=== PATIENT | female | born 1975 | race Caucasian/White ===

== ENCOUNTER 2016-05-28 18:23 | Emergency (ER) | payer BC ==
[~2016-05-28] VITALS: Ht 162.6 cm; Wt 80.3 kg
[~2016-05-28 18:23] MED LIST: FERR-24 PO; PRENTAB69 PO
[2016-05-28 18:49] VITALS: TEMP 37.2; Ht 162.6 cm; Wt 80.3 kg
[2016-05-28] MEDS ORDERED: SODIUM CHLORIDE 0.9% 1000ML 1,000 ML IV STA (19:03)
[2016-05-28] MEDS ORDERED: ONDANSETRON INJ 2 MG/ML 2 ML VIAL IV STA (19:03)
[2016-05-28 19:23] LABS: BASO ABS # 0.02 K/uL (0-0.2); COMPLETE YES; EOS % 3.9 %; HEMATOCRIT 36.9 % (37-47); IG% 0.5 %; LYMPH % 19.4 %; MEAN CELL VOLUME 81.8 fL (80-100); MEAN CORPUSCULAR HEMOGLOBIN 27.1 pg (25-34); MEAN CORPUSCULAR HGB CONC 33.1 g/dl (32-36); MEAN PLATELET VOLUME 9.8 fL (7.4-10.4); MONO % 9.2 %; PLATELET COUNT 281 K/uL (130-400); RED BLOOD COUNT 4.51 M/uL (4.2-5.4); WHITE BLOOD COUNT 2.06 K/uL (4.8-10.8)
[2016-05-28 19:43] LABS: BLOOD UREA NITROGEN 15 mg/dl (7-18); BUN/CREATININE RATIO 21.9 (10-20); CALCIUM 8.5 mg/dl (8.5-10.1); CARBON DIOXIDE 25 mmol/L (21-32); CHLORIDE 107 mmol/L (98-107); CREATININE 0.67 mg/dl (0.60-1.20); GLUCOSE 105 mg/dl (70-99); SODIUM 142 mmol/L (136-145)
[2016-05-28 19:52] LABS: ALKALINE PHOSPHATASE 67 U/L (45-117); ALT/SGPT 50 U/L (12-78); AST/SGOT 18 U/L (15-37)
[2016-05-28] MEDS ORDERED: ONDA4TAB10 SL (21:01)
[2016-05-28] MEDS ORDERED: ONDANSETRON HOME PACK 4MG OD TAB PO ONE (21:15)
[2016-05-28 21:22] VITALS: BP 120/63; PULSE 111; O2SAT 97
--- NOTE | 2016-05-28 22:22 | EMERGENCY ROOM VISIT NOTE ---
History Report prepared by Emy: Caty Jones Under the Supervision of: Dr. Spencer Carreno M.D. First contact with patient: 18:57 Chief Complaint: VOMITING Stated Complaint: VOMITING,DIARRHEA,ON CHEMO Nursing Triage Summary: hx hodkins lymphoma History of Present Illness The patient is a 40 year old female who presents to the Emergency Room with complaints of persistent nausea, vomiting and diarrhea that began this afternoon. The patient also complains of general abdominal cramping, lightheadedness, and weakness. She most recently urinated 2 hours ago. Denies fever or other complaints. No recent foreign travel. The patient was on Cephalexin for a nose infection recently and finished the course 2 days ago. The patient has Hodgkin's lymphoma and is receiving chemotherapy treatment. Her most recent chemotherapy was about 2 weeks ago. Source of History: patient Onset: this afternoon Position: other (GI) Quality: other (nausea, vomiting, diarrhea) Timing: other (persistent) Associated Symptoms: + abdominal pain, + weakness Note: Other symptoms: lightheadedness Review of Systems See HPI for pertinent positives & negatives. A total of 10 systems reviewed and were otherwise negative. Past Medical & Surgical Medical Problems: (1) Hodgkin's lymphoma Family History Diabetes mellitus Heart disease Social History Smoking Status: Former Smoker Alcohol Use: none Marital Status: Occupation Status: employed Current/Historical Medications Scheduled Ferrous Sulfate (Fe Tabs), 325 MG PO DAILY Multivit/Min/Iron/Fol Ac/Pren ( Vitamins), 1 TAB PO DAILY Ondasetron Odt (Zofran Odt), 4 MG SL Q6H Allergies Coded Allergies: Sulfa Drugs (Unverified Allergy, RASH, 08/29/11) Physical Exam Vital Signs Date Time Temp Pulse Resp B/P Pulse Ox O2 Delivery O2 Flow Rate FiO2 05/28/16 21:22 111 18 120/63 97 Room Air 05/28/16 19:28 98 16 102/65 99 Room Air 05/28/16 18:49 37.2 100 24 87/60 97 Room Air Physical Exam Constitutional: Vital signs reviewed. Eyes: Pupils are equal round reactive to light. Conjunctiva are noninjected. ENT: Pharynx is clear without erythema or exudate. Mucous membranes are dry. Neck supple without meningeal signs. Respiratory: Clear to auscultation bilaterally. Breath sounds are equal bilaterally. Cardiovascular: Regular rate and rhythm. No rubs or gallops. GI: Soft, nondistended and nontender. Bowel sounds are present. Musculoskeletal: No peripheral edema. Integumentary: No cyanosis. Neurological: The patient is awake and alert. No focal deficits. Psychiatric: Normal affect. Medical Decision & Procedures Laboratory Results 05/28/16 19:09 Red Blood Count 4.51, Mean Corpuscular Volume 81.8, Mean Corpuscular Hemoglobin 27.1, Mean Corpuscular Hemoglobin Concent 33.1, Mean Platelet Volume 9.8, Neutrophils (%) (Auto) 66.0, Lymphocytes (%) (Auto) 19.4, Monocytes (%) (Auto) 9.2, Eosinophils (%) (Auto) 3.9, Basophils (%) (Auto) 1.0, Neutrophils # (Auto) 1.36, Lymphocytes # (Auto) 0.40, Monocytes # (Auto) 0.19, Eosinophils # (Auto) 0.08, Basophils # (Auto) 0.02 05/28/16 19:09 Test 05/28/16 19:09 White Blood Count 2.06 K/uL (4.8-10.8) Red Blood Count 4.51 M/uL (4.2-5.4) Hemoglobin 12.2 g/dL (12.0-16.0) Hematocrit 36.9 % (37-47) Mean Corpuscular Volume 81.8 fL (80-100) Mean Corpuscular Hemoglobin 27.1 pg (25-34) Mean Corpuscular Hemoglobin Concent 33.1 g/dl (32-36) Platelet Count 281 K/uL (130-400) Mean Platelet Volume 9.8 fL (7.4-10.4) Neutrophils (%) (Auto) 66.0 % Lymphocytes (%) (Auto) 19.4 % Monocytes (%) (Auto) 9.2 % Eosinophils (%) (Auto) 3.9 % Basophils (%) (Auto) 1.0 % Neutrophils # (Auto) 1.36 K/uL (1.4-6.5) Lymphocytes # (Auto) 0.40 K/uL (1.2-3.4) Monocytes # (Auto) 0.19 K/uL (0.11-0.59) Eosinophils # (Auto) 0.08 K/uL (0-0.5) Basophils # (Auto) 0.02 K/uL (0-0.2) RDW Standard Deviation 44.6 fL (36.4-46.3) RDW Coefficient of Variation 15.4 % (11.5-14.5) Immature Granulocyte % (Auto) 0.5 % Immature Granulocyte # (Auto) 0.01 K/uL (0.00-0.02) Anion Gap 10.0 mmol/L (3-11) Est Creatinine Clear Calc Drug Dose 116.8 ml/min Estimated GFR () 129.2 Estimated GFR (Non- 111.5 BUN/Creatinine Ratio 21.9 (10-20) Calcium Level 8.5 mg/dl (8.5-10.1) Total Bilirubin 0.3 mg/dl (0.2-1) Direct Bilirubin < 0.1 mg/dl (0-0.2) Aspartate Amino Transf (AST/SGOT) 18 U/L (15-37) Alanine Aminotransferase (ALT/SGPT) 50 U/L (12-78) Alkaline Phosphatase 67 U/L (45-117) Total Protein 7.3 gm/dl (6.4-8.2) Albumin 4.0 gm/dl (3.4-5.0) Lipase 82 U/L (73-393) Laboratory results as reviewed by me. Medications Administered Medications (Trade) Dose Ordered Sig/Chris Route Start Time Stop Time Status Last Admin Dose Admin Sodium Chloride (Nss 1000ml) 1,000 ml @ 999 mls/hr Q1H1M STAT IV 05/28/16 19:03 05/28/16 20:03 DC 05/28/16 19:19 999 MLS/HR Ondansetron HCl (Zofran Inj) 4 mg NOW STAT IV 05/28/16 19:03 05/28/16 19:05 DC 05/28/16 19:20 4 MG Ondansetron HCl (ZOFRAN ODT 4MG Home Pack) 1 painterpa UD ONCE PO 05/28/16 21:15 05/28/16 21:16 DC 05/28/16 21:21 1 HOMEPACK ED Course 1858: The patient was evaluated in room C2. A complete history and physical exam was performed. 1903: Ordered Zofran Inj 4 mg IV, NSS 1000 ml @ 999 mls/hr IV. 2030: I reassessed the patient and discussed test results with her. Her blood pressure was 110/58. She is feeling better and sipping Mario Malika. 2057: I reassessed the patient. She drank Mario Malika and feels well enough to go home. Her blood pressure was 120/63. The patient will be discharged home. 2114: Ordered Ondansetron HCl 1 homepack PO. Medical Decision This is a 40-year-old female who presents with vomiting and diarrhea. Differential diagnosis includes gastroenteritis, dehydration, foodborne illness , electrolyte abnormality, C. difficile. I did perform a limited focused review of portions of the patient's old chart on the electronic medical record. The patient has had no recent pertinent visits to this hospital. I did evaluate the patient as noted above. The patient is presenting with vomiting and diarrhea consistent with a viral gastroenteritis. She does have some abdominal pain but no tenderness on examination. She was initially hypotensive in triage. She was also recently on antibiotics. IV access was established. The patient was placed on a continuous utility operator. I did treat her with a liter normal saline IV. She was also given Zofran IV. Her blood pressure improved significantly. I did order stool cultures and C. difficile testing. C. difficile testing was negative. I did order and review the patient's blood work as noted in the electronic medical record. She does have leukopenia likely from her chemotherapy. I did reassess the patient. She is feeling better. Her blood pressure is significantly improved. She is no longer lightheaded. She is drinking mario malika. She does feel well enough for discharge. She was given a prescription for Zofran. I did discuss her test results with her. I did recommend close follow up. She was discharged in good condition. Impression Primary Impression: Dehydration Additional Impressions: Hypotension Vomiting and diarrhea Leukopenia Scribe Attestation The scribe's documentation has been prepared under my direct and personally reviewed by me in its entirety. I confirm that the note above accurately reflects all work, treatment, procedures, and medical decision making performed by me. Departure Information Dispostion Home / Self-Care Prescriptions Ondasetron Odt (ZOFRAN ODT) 4 Mg Tab 4 MG SL Q6H for Nausea, #10 TAB Prov: Spencer Carreno M.D. 05/28/16 Referrals Alessandro Hamilton M.D. (PCP) Patient Instructions ED Dehydration, ED Diet Vomiting Diarrhea, My [facility] [address] Additional Instructions You have been examined and treated today on an emergency basis only. This is not a substitute for, or an effort to provide, complete comprehensive medical care. It is impossible to recognize and treat all injuries or illnesses in a single emergency department visit. It is therefore important that you follow up closely with your physician. Call as soon as possible for an appointment. Return for worsening symptoms or if you develop fever, rectal bleeding, significant abdominal pain or any other concerning symptoms. Problem Qualifiers
[2016-07-14] MEDS ORDERED: PROC1TAB5 PO (00:35)
[2016-07-14] MEDS ORDERED: ONDA8TAB6 PO (00:35)
== END 2016-05-28 21:24 | disposition home or self-care (01) ==
LOC: C.EDB 18:24 → C.EDC 21:24
DX: E86.0 Dehydration (principal); I95.9 Hypotension, unspecified; R11.10 Vomiting, unspecified; R19.7 Diarrhea, unspecified; D72.819 Decreased white blood cell count, unspecified; C81.90 Hodgkin lymphoma, unspecified, unspecified site; Z87.891 Personal history of nicotine dependence; Z79.899 Other long term (current) drug therapy; Z88.2 Allergy status to sulfonamides; Z83.3 Family history of diabetes mellitus; Z82.49 Family history of ischemic heart disease and other diseases of the circulatory system

== ENCOUNTER 2016-06-22 21:56 | Emergency (ER) | payer BC ==
[~2016-06-22] VITALS: Ht 162.6 cm; Wt 83.1 kg
[~2016-06-22 21:56] MED LIST changes: +ONDA4TAB10 SL
[2016-06-22 22:00] VITALS: TEMP 36.9; Ht 162.6 cm; Wt 83.1 kg
[2016-06-23] MEDS ORDERED: SODIUM CHLORIDE 0.9% 1000ML 1,000 ML IV STA (00:21)
[2016-06-23] MEDS ORDERED: SODIUM CHLORIDE 0.9% 1000ML 1,000 ML IV ONE (00:21)
--- NOTE | 2016-06-23 00:23 | EMERGENCY ROOM VISIT NOTE ---
History Report prepared by Emy: Fernie Scott Under the Supervision of: Dr. Kwesi Simon M.D. First contact with patient: 00:02 Chief Complaint: LEG PAIN,LEG INJURY Stated Complaint: DIANE HORSE IN R CALF AND THIGH History of Present Illness The patient is a 40 year old female who presents to the Emergency Room with complaints of worsening right calf pain for the past three days. The patient also has some pain in the right thigh. The pain is rated 6/10 in severity. The patient denies any recent injuries to the leg. She also complains of chest soreness and neck and shoulder stiffness. The patient's chest pain is not worsened with movement or breathing. The patient denies any fevers. The patient is being treated for Hodgkin's Lymphoma which was diagnosed in February. She has had four chemotherapy treatments with the last one being 10 days ago. The patient has a port. She follows up with Dr. Hamilton [facility] Oncologist. She is mildly neutropenic. The patient is not on any blood thinners. She denies any personal or family history of blood clots. The patient notes that she has had vaginal bleeding and hematuria for the past week. The patient is not on prednisone. Source of History: patient, spouse/significant other Onset: three days Position: leg (right) Symptom Intensity: 6/10 Timing: worsening Associated Symptoms: + chest pain, + neck pain, + urinary symptoms, No fevers Review of Systems See HPI for pertinent positives & negatives. A total of 10 systems reviewed and were otherwise negative. Past Medical & Surgical Medical Problems: (1) Hodgkin's lymphoma Old medical records were reviewed. Nurse's notes were reviewed and I agree with. Family History Diabetes mellitus Heart disease Social History Smoking Status: Former Smoker Alcohol Use: none Marital Status: Occupation Status: employed Current/Historical Medications Scheduled Amoxicillin & Pot Clavulanate (Augmentin 875-125 mg), 1 TAB PO BID Scheduled PRN Acetaminophen (Tylenol), 650 MG PO Q6 PRN for Pain Meclizine Hcl (Meclizine Hcl), 1 TAB PO TID PRN for dizzy Ondansetron Hcl (Zofran), 8 MG PO UD PRN for Nausea Prochlorperazine Maleate (Compazine), 10 MG PO UD PRN for Nausea Allergies Coded Allergies: Sulfa Drugs (Unverified Allergy, Unknown, RASH, 2/25/17) Physical Exam Vital Signs Physical Exam General: Well developed well nourished non-ill appearing middle aged female who appears in no acute distress, breathing comfortably on room air. Normal speech HEENT: Normal cephalic atraumatic. Pupils are equal round and reactive to light. Extraocular movements are intact. Oropharynx is pink with moist mucous membranes. No swelling of the mouth lips or tongue. Neck: Supple with a midline trachea. No meningeal signs or stiffness, no JVD or bruits. No Stridor. Chest: Clear to auscultation bilaterally. No wheezes or rhonchi. No increased work of breathing. A port in chest Heart: Regular rate and rhythm without murmurs or gallops. Abdomen: Soft nontender, nondistended without rebound guarding or rigidity. Extremities: No cyanosis clubbing or edema. No calf tenderness or assymetry. no redness or warmth Spine/Back. Non tender to palpation. No CVA tenderness Skin: Good turgor without rashes. Neurologic exam: Cranial nerves two through 12 are intact. Motor and sensation are intact and symmetrical throughout. Medical Decision & Procedures ER Provider Diagnostic Interpretation: Radiology results as stated below per my review and radiologist interpretation: US VENOUS RIGHT LOWER EXTREMITY: Compared to bilateral lower extremity DVT study 08/29/2011. No evidence of right lower extremity DVT. Radiologist: Mary Kay Quesada MD. Laboratory Results 06/23/16 01:45 Red Blood Count 4.11, Mean Corpuscular Volume 80.0, Mean Corpuscular Hemoglobin 26.8, Mean Corpuscular Hemoglobin Concent 33.4, Mean Platelet Volume 9.2, Neutrophils (%) (Auto) 50.1, Lymphocytes (%) (Auto) 42.0, Monocytes (%) (Auto) 4.4, Eosinophils (%) (Auto) 2.8, Basophils (%) (Auto) 0.5, Neutrophils # (Auto) 2.16, Lymphocytes # (Auto) 1.81, Monocytes # (Auto) 0.19, Eosinophils # (Auto) 0.12, Basophils # (Auto) 0.02 06/23/16 01:45 Test 06/23/16 01:15 06/23/16 01:45 Urine Color YELLOW Urine Appearance CLEAR (CLEAR) Urine pH 5.0 (4.5-7.5) Urine Specific Egan 1.005 (1.000-1.030) Urine Protein NEG (NEG) Urine Glucose (UA) NEG (NEG) Urine Ketones NEG (NEG) Urine Occult Blood TRACE (NEG) Urine Nitrite NEG (NEG) Urine Bilirubin NEG (NEG) Urine Urobilinogen NEG (NEG) Urine Leukocyte Esterase NEG (NEG) Urine WBC (Auto) 0 /hpf (0-5) Urine RBC (Auto) 0-4 /hpf (0-4) Urine Hyaline Casts (Auto) 0 /lpf (0-5) Urine Epithelial Cells (Auto) 0-5 /lpf (0-5) Urine Bacteria (Auto) NEG (NEG) White Blood Count 4.31 K/uL (4.8-10.8) Red Blood Count 4.11 M/uL (4.2-5.4) Hemoglobin 11.0 g/dL (12.0-16.0) Hematocrit 32.9 % (37-47) Mean Corpuscular Volume 80.0 fL (80-100) Mean Corpuscular Hemoglobin 26.8 pg (25-34) Mean Corpuscular Hemoglobin Concent 33.4 g/dl (32-36) Platelet Count 328 K/uL (130-400) Mean Platelet Volume 9.2 fL (7.4-10.4) Neutrophils (%) (Auto) 50.1 % Lymphocytes (%) (Auto) 42.0 % Monocytes (%) (Auto) 4.4 % Eosinophils (%) (Auto) 2.8 % Basophils (%) (Auto) 0.5 % Neutrophils # (Auto) 2.16 K/uL (1.4-6.5) Lymphocytes # (Auto) 1.81 K/uL (1.2-3.4) Monocytes # (Auto) 0.19 K/uL (0.11-0.59) Eosinophils # (Auto) 0.12 K/uL (0-0.5) Basophils # (Auto) 0.02 K/uL (0-0.2) RDW Standard Deviation 45.5 fL (36.4-46.3) RDW Coefficient of Variation 15.9 % (11.5-14.5) Immature Granulocyte % (Auto) 0.2 % Immature Granulocyte # (Auto) 0.01 K/uL (0.00-0.02) Anion Gap 8.0 mmol/L (3-11) Est Creatinine Clear Calc Drug Dose 124.3 ml/min Estimated GFR () 131.2 Estimated GFR (Non- 113.2 BUN/Creatinine Ratio 19.4 (10-20) Calcium Level 9.0 mg/dl (8.5-10.1) Total Bilirubin 0.2 mg/dl (0.2-1) Direct Bilirubin < 0.1 mg/dl (0-0.2) Aspartate Amino Transf (AST/SGOT) 16 U/L (15-37) Alanine Aminotransferase (ALT/SGPT) 41 U/L (12-78) Alkaline Phosphatase 68 U/L (45-117) Total Protein 7.0 gm/dl (6.4-8.2) Albumin 3.8 gm/dl (3.4-5.0) Lipase 127 U/L (73-393) Date/Time Source Procedure Growth Status 06/23/16 01:15 Urine , Clean Catch Urine Culture - Final NO GROWTH - LESS THAN 1,000 COLONIES/ML Complete Laboratory studies as stated above per my review. Medications Administered Medications (Trade) Dose Ordered Sig/Chris Route Start Time Stop Time Status Last Admin Dose Admin Sodium Chloride (Nss 1000ml) 1,000 ml @ 999 mls/hr Q1H1M STAT IV 06/23/16 00:21 06/23/16 01:21 DC 06/23/16 00:21 999 MLS/HR ED Course 0010: Past medical records reviewed. The patient was evaluated in room C5, and a complete history and physical examination were performed. 0021: NSS 1000 ml @ 150 mls/hr, NSS 1000 ml @ 999 mls/hr. 0155: Reassessed the patient. 0230: Dr. Rob, [employer]ision C[employer] Manager: Agrees with the plan. Patient will be discharged. Medical Decision This patient comes in as described above. She is placed in room C5. She is here for treatment and evaluation of right leg pain. It feels like a muscle spasm the right calf. She is currently receiving chemotherapy for Hodgkin's lymphoma. She does have an aport in her left chest. Order ultrasound and blood work. She has no fever. Blood work was unremarkable she is not neutropenic. She has mild anemia. She has normal platelet function. No significant electrolyte or metabolic abnormalities. Ultrasound of her leg was unremarkable. Urinalysis was unremarkable does not suggest UTI with a backup culture pending. She desires to go home. I did discuss this with the on-call service writer, Dr. Rob, and she agrees with plan. The patient will rest and use [id number] pain medications and return if increasing pain, worsening of symptoms, shortness breath, fever or chills, any new problems or concerns. She is happy with the plan and discharged to home. Consults Time Called: [phone] Consulting Physician: Dr. Rob, [employer] C[employer] Manager: Returned Call: [phone]: Dr. Rob, [employer] C[employer] Manager: Agrees with the plan. Patient will be discharged. Impression Primary Impression: Leg pain, right Additional Impression: Hodgkin's lymphoma Scribe Attestation The scribe's documentation has been prepared under my direction and personally reviewed by me in its entirety. I confirm that the note above accurately reflects all work, treatment, procedures, and medical decision making performed by me. Departure Information Dispostion Home / Self-Care Referrals Alessandro Hamilton M.D. (PCP) Forms HOME CARE DOCUMENTATION FORM, IMPORTANT VISIT INFORMATION Patient Instructions My [facility] [employer] Additional Instructions Rest Drink plenty of fluids REturn if: worsening of symptoms, fever, increasing pain, any new problems or concerns Follow-up with your doctor on Saturday for recehck Problem Qualifiers
[2016-06-23 01:35] LABS: URINE APPEARANCE CLEAR (CLEAR); URINE BILIRUBIN NEG (NEG); URINE COLOR YELLOW; URINE EPITHELIAL CELL AUTO 0-5 /lpf (0-5); URINE NITRITE NEG (NEG); URINE SPECIFIC GRAVITY 1.005 (1.000-1.030); UROBILINOGEN NEG (NEG)
[2016-06-23 01:40] LABS: MANUAL MICROSCOPIC REQUIRED? NO; REVIEW REQ? NO
[2016-06-23 01:58] LABS: HEMATOCRIT 32.9 % (37-47); MEAN CORPUSCULAR HEMOGLOBIN 26.8 pg (25-34); MEAN CORPUSCULAR HGB CONC 33.4 g/dl (32-36); MEAN PLATELET VOLUME 9.2 fL (7.4-10.4); PLATELET COUNT 328 K/uL (130-400); RED BLOOD COUNT 4.11 M/uL (4.2-5.4); WHITE BLOOD COUNT 4.31 K/uL (4.8-10.8)
[2016-06-23 02:19] LABS: ALT/SGPT 41 U/L (12-78); AST/SGOT 16 U/L (15-37); BLOOD UREA NITROGEN 12 mg/dl (7-18); BUN/CREATININE RATIO 19.4 (10-20); CARBON DIOXIDE 26 mmol/L (21-32); CHLORIDE 107 mmol/L (98-107); CREATININE 0.64 mg/dl (0.60-1.20); GLUCOSE 88 mg/dl (70-99); POTASSIUM 3.8 mmol/L (3.5-5.1); SODIUM 141 mmol/L (136-145)
[2016-06-23 02:21] LABS: ALKALINE PHOSPHATASE 68 U/L (45-117)
[2016-06-23 02:25] LABS: BASO % 0.5 %; BASO ABS # 0.02 K/uL (0-0.2); COMPLETE YES; EOS % 2.8 %; IG% 0.2 %; LYMPH ABS # 1.81 K/uL (1.2-3.4); MONO % 4.4 %; NEUT % 50.1 %
[2016-06-23 02:51] VITALS: BP 110/76; PULSE 88; O2SAT 99
--- NOTE | 2016-06-23 06:57 | DIAGNOSTIC IMAGING REPORT ---
ULTRASOUND RIGHT VENOUS DOPP LOWER EXT UNILAT CLINICAL HISTORY: Right thigh and calf pain. History of lymphoma. COMPARISON STUDY: August 29, 2011 FINDINGS: Real-time and color flow Doppler imaging were performed. Flow was seen within the femoral, popliteal and calf veins with no intraluminal thrombus demonstrated. The saphenous vein is patent. IMPRESSION: No evidence of right lower extremity DVT. Electronically signed by: Diego Kuhn M.D. 06/23/2016 6:56 AM Dictated Date/Time: 06/23/2016 6:55 AM
[2016-07-14] MEDS ORDERED: PROC1TAB5 PO (00:35)
[2016-07-14] MEDS ORDERED: ONDA8TAB6 PO (00:35)
== END 2016-06-23 02:54 | disposition home or self-care (01) ==
LOC: C.EDB 21:56 → C.EDC 06-23 02:54
DX: M79.661 Pain in right lower leg (principal); M79.651 Pain in right thigh; C81.90 Hodgkin lymphoma, unspecified, unspecified site; Z83.3 Family history of diabetes mellitus; Z87.891 Personal history of nicotine dependence

== ENCOUNTER 2016-07-14 16:29 | Emergency (ER) | payer BC ==
[~2016-07-14] VITALS: Ht 162.6 cm; Wt 87.0 kg
[~2016-07-14 16:29] MED LIST changes: -FERR-24 PO; -ONDA4TAB10 SL; +ONDA8TAB6 PO; -PRENTAB69 PO; +PROC1TAB5 PO
[2016-07-14 16:33] VITALS: Ht 162.6 cm; Wt 87.0 kg
[2016-07-14] MEDS ORDERED: ACET-1311 PO (17:20)
[2016-07-14] MEDS ORDERED: AMOX875T PO (17:20)
[2016-07-14] MEDS ORDERED: MECLIZINE HCL 25 MG TAB PO STA (17:21)
[2016-07-14] MEDS ORDERED: SODIUM CHLORIDE 0.9% 1000ML 1,000 ML IV STA (17:21)
[2016-07-14] MEDS ORDERED: OPTIRAY 320 IV PRN (18:00)
[2016-07-14 18:13] LABS: BASO % 0.9 %; BASO ABS # 0.03 K/uL (0-0.2); COMPLETE YES; EOS % 2.8 %; HEMATOCRIT 36.5 % (37-47); LYMPH % 40.8 %; LYMPH ABS # 1.33 K/uL (1.2-3.4); MEAN CELL VOLUME 80.9 fL (80-100); MEAN CORPUSCULAR HEMOGLOBIN 27.1 pg (25-34); MEAN CORPUSCULAR HGB CONC 33.4 g/dl (32-36); MEAN PLATELET VOLUME 10.2 fL (7.4-10.4); MONO % 8.3 %; NEUT % 47.2 %; PLATELET COUNT 256 K/uL (130-400); RED BLOOD COUNT 4.51 M/uL (4.2-5.4); WHITE BLOOD COUNT 3.26 K/uL (4.8-10.8)
[2016-07-14 18:14] LABS: BUN/CREATININE RATIO 15.4 (10-20); CALCIUM 9.1 mg/dl (8.5-10.1); CREATININE 0.67 mg/dl (0.60-1.20); POTASSIUM 3.7 mmol/L (3.5-5.1)
--- NOTE | 2016-07-14 19:16 | DIAGNOSTIC IMAGING REPORT ---
CT brain, nasal HEAD COMBO CLINICAL HISTORY: lymphoma and dizzy mental status change TECHNIQUE: Transaxial CT acquisition pre and postcontrast administration COMPARISON STUDY: None FINDINGS: Normal study. Density characteristics the cerebellar as well as cerebral hemispheres are unremarkable. No abnormal postcontrast enhancement. IMPRESSION: Normal study Electronically signed by: Alberto Cohen M.D. 07/14/2016 7:15 PM Dictated Date/Time: 07/14/2016 7:14 PM
[2016-07-14] MEDS ORDERED: MECL1TAB42 PO ×2 (20:11→20:12)
[2016-07-14 20:30] VITALS: BP 118/73; PULSE 76; TEMP 37; O2SAT 99
--- NOTE | 2016-07-14 20:54 | EMERGENCY ROOM VISIT NOTE ---
History Report prepared by Emy: Kwesi Nichols Under the Supervision of: Dr. Isaac Medina D.O. First contact with patient: 17:04 Chief Complaint: SORETHROAT Stated Complaint: DIZZY,LIGHTHEADED,SOREATHROAT,SORE EARS History of Present Illness The patient is a 41 year old female who presents to the Emergency Room with complaints of persistent dizziness beginning about 2 hours [employer]OCK [employer]. She notes she was about to go out to dinner when she suddenly felt dizzy and "foggy". She does not feel like the room is spinning but she feels like she is spinning. She adds she has been experiencing fullness in her ears and notes that she feels like she is in a fog. The patient reports she is currently on chemotherapy for Hodgkin's lymphoma and has been getting chemo treatments every other week for the past few months. Her last dose of chemo was 3 days ago. She notes she has been having some side effects. She is currently on an antibiotic for a sore throat. The patient has not seen her oncologist about the dizziness symptoms. She denies having any fever, ringing in her ears, cough, rhinorrhea, abdominal pain, nausea, vomiting, diarrhea, urinary symptoms, or blood in her stools. She states that turning or twisting her head does not affecter her dizziness. No chest pain or shortness of breath. No trouble ambulating. No ringing in ears. Source of History: patient Onset: about 2 hours ago Position: other (global) Quality: other (dzziness) Timing: other (persistent) Associated Symptoms: + sorethroat, No abdominal pain, No cough, No diarrhea , No fevers, No hematochezia, No nausea, No urinary symptoms, No vomiting Note: The patient reports having blurry vision and ear fullness. She denies having any rhinorrhea or ringing in her ears. Review of Systems See HPI for pertinent positives & negatives. A total of 10 systems reviewed and were otherwise negative. Past Medical & Surgical Medical Problems: (1) Hodgkin's lymphoma Family History Diabetes mellitus Heart disease Social History Smoking Status: Former Smoker Alcohol Use: none Marital Status: Occupation Status: employed Current/Historical Medications Scheduled Amoxicillin & Pot Clavulanate (Augmentin 875-125 mg), 1 TAB PO BID Scheduled PRN Acetaminophen (Tylenol), 650 MG PO Q6 PRN for Pain Meclizine Hcl (Meclizine Hcl), 1 TAB PO TID PRN for dizzy Ondansetron Hcl (Zofran), 8 MG PO UD PRN for Nausea Prochlorperazine Maleate (Compazine), 10 MG PO UD PRN for Nausea Allergies Coded Allergies: Sulfa Drugs (Unverified Allergy, Unknown, RASH, 06/23/16) Physical Exam Vital Signs Date Time Temp Pulse Resp B/P Pulse Ox O2 Delivery O2 Flow Rate FiO2 07/14/16 20:30 37.0 76 16 118/73 99 07/14/16 19:13 82 20 124/73 98 Room Air 07/14/16 17:52 78 18 129/78 100 Room Air 07/14/16 16:33 36.3 82 20 130/81 99 Room Air Physical Exam GENERAL: Sitting in bed, alert, well appearing, well nourished, no distress, non -toxic EYE EXAM: normal conjunctiva, PERRL and EOM's intact EARS: TMs clear bilaterally. OROPHARYNX: no exudate, no erythema, lips, buccal mucosa, and tongue normal and mucous membranes are moist NECK: supple, no nuchal rigidity, no adenopathy, non-tender LUNGS: Clear to auscultation. Normal chest wall mechanics HEART: no murmurs, S1 normal and S2 normal ABDOMEN: abdomen soft, non-tender, normo-active bowel sounds, no masses, no rebound or guarding. BACK: Back is symmetrical on inspection and there is no deformity, no midline tenderness, no CVA tenderness. SKIN: no rashes and no bruising UPPER EXTREMITIES: upper extremities are grossly normal. LOWER EXTREMITIES: No pitting edema. NEURO EXAM: Normal sensorium, cranial nerves II-XII intact, normal speech, no weakness of arms, no weakness of legs. No drift. Finger to nose intact. Gross sensation intact. Rapid alternating movements of the upper extremities intact. Medical Decision & Procedures ER Provider Diagnostic Interpretation: Radiology results have been interpreted by the radiologist and reviewed by me. CT brain, nasal HEAD COMBO FINDINGS: Normal study. Density characteristics the cerebellar as well as cerebral hemispheres are unremarkable. No abnormal postcontrast enhancement. IMPRESSION: Normal study Electronically signed by: Alberto Cohen M.D. 07/14/2016 7:15 PM Dictated Date/Time: 07/14/2016 7:14 PM Laboratory Results 07/14/16 17:39 Red Blood Count 4.51, Mean Corpuscular Volume 80.9, Mean Corpuscular Hemoglobin 27.1, Mean Corpuscular Hemoglobin Concent 33.4, Mean Platelet Volume 10.2, Neutrophils (%) (Auto) 47.2, Lymphocytes (%) (Auto) 40.8, Monocytes (%) (Auto) 8.3, Eosinophils (%) (Auto) 2.8, Basophils (%) (Auto) 0.9, Neutrophils # (Auto) 1.54, Lymphocytes # (Auto) 1.33, Monocytes # (Auto) 0.27, Eosinophils # (Auto) 0.09, Basophils # (Auto) 0.03 07/14/16 17:39 Test 07/14/16 17:39 White Blood Count 3.26 K/uL (4.8-10.8) Red Blood Count 4.51 M/uL (4.2-5.4) Hemoglobin 12.2 g/dL (12.0-16.0) Hematocrit 36.5 % (37-47) Mean Corpuscular Volume 80.9 fL (80-100) Mean Corpuscular Hemoglobin 27.1 pg (25-34) Mean Corpuscular Hemoglobin Concent 33.4 g/dl (32-36) Platelet Count 256 K/uL (130-400) Mean Platelet Volume 10.2 fL (7.4-10.4) Neutrophils (%) (Auto) 47.2 % Lymphocytes (%) (Auto) 40.8 % Monocytes (%) (Auto) 8.3 % Eosinophils (%) (Auto) 2.8 % Basophils (%) (Auto) 0.9 % Neutrophils # (Auto) 1.54 K/uL (1.4-6.5) Lymphocytes # (Auto) 1.33 K/uL (1.2-3.4) Monocytes # (Auto) 0.27 K/uL (0.11-0.59) Eosinophils # (Auto) 0.09 K/uL (0-0.5) Basophils # (Auto) 0.03 K/uL (0-0.2) RDW Standard Deviation 47.1 fL (36.4-46.3) RDW Coefficient of Variation 16.1 % (11.5-14.5) Immature Granulocyte % (Auto) 0.0 % Immature Granulocyte # (Auto) 0.00 K/uL (0.00-0.02) Anion Gap 7.0 mmol/L (3-11) Est Creatinine Clear Calc Drug Dose 120.4 ml/min Estimated GFR () 128.3 Estimated GFR (Non- 110.7 BUN/Creatinine Ratio 15.4 (10-20) Calcium Level 9.1 mg/dl (8.5-10.1) Laboratory results per my review. Medications Administered Medications (Trade) Dose Ordered Sig/Chris Route Start Time Stop Time Status Last Admin Dose Admin Sodium Chloride (Nss 1000ml) 1,000 ml @ 999 mls/hr Q1H1M STAT IV 07/14/16 17:21 3 18:21 DC 07/14/16 17:21 999 MLS/HR Meclizine HCl (Antivert Tab) 25 mg NOW STAT PO 07/14/16 17:21 3 17:23 DC 07/14/16 17:49 25 MG ECG Indication: other (sore throat) Rate (beats per minute): 72 Rhythm: sinus rhythm Findings: no ectopy, other (normal axis) ED Course ED COURSE: Vital signs were reviewed and showed normal. The patients medical record was reviewed The above diagnostic studies were performed and reviewed. ED treatments and interventions as stated above. 1713: The patient was evaluated in room C5. A complete history and physical examination was performed. 1721: Ordered Meclizine HCl 25 mg PO, and NSS 1,000 ml @ 999 mls/hr IV. 1999: I reviewed the patient's case with Dr. Hamilton. He agrees with the treatment plan, and will have the patient follow up. 2004: I reassessed the patient. She no longer has dizziness, and she has no difficulty ambulating. 2015: Upon reevaluation, the patient is doing well.I discussed my findings with the patient and she understands and agrees with the treatment plan. Based on the patients age, coexisting illnesses, exam and lab findings the decision to treat as an outpatient was made. The patient remained stable while under my care. The patient appeared well at the time of discharge. Medical Decision Differential diagnosis includes etiologies such as benign positional vertigo, dehydration, hypovolemia, anemia, tumor, infection, hypoglycemia, electrolyte abnormalities, cardiac sources, intracerebral event, toxicologic, neurologic, as well as others were entertained. Patient is an 41-year-old female who presents the ER for dizziness. It was a sudden onset but she notes that she feels like she is spinning. She also feels like she is in a fog. No weakness or numbness in arms or legs. Neurologic exam including cerebellar exam is completely intact. CT of her head with and without contrast was performed as she has a history of lymphoma. This was negative. She is given IV fluids and Antivert. Her dizziness completely resolved. She notes that she still feels like she is in a slight follow-up. She was able to ambulate in the room without difficulty. EKG was unremarkable. Vitals were unremarkable. Case was discussed with cardiology and they agree with the current treatment plan. She'll follow up with him as an outpatient. Patient was afebrile. No headaches. Based on her symptoms I do believe that this is peripheral vertigo as it was sudden onset and completely resolved. Discussed with Pt concerning signs and symptoms to watch out for. Pt was instructed to follow up with their PCP and discussed with the patient their option to return to the ED at anytime for persistent or worsening symptoms. The appropriate anticipatory guidance and out-patient management, including indications for return to the emergency department, were explained at length to the patient and understood. Consults Time Called: 1944 Consulting Physician: Dr. Hamilton Returned Call: 1999 I reviewed the patient's case with Dr. Hamilton. He agrees with the treatment plan , and will have the patient follow up. Impression Primary Impression: Vertigo Additional Impression: Sore throat Scribe Attestation The scribe's documentation has been prepared under my direction and personally reviewed by me in its entirety. I confirm that the note above accurately reflects all work, treatment, procedures, and medical decision making performed by me. Departure Information Dispostion Home / Self-Care Prescriptions Meclizine Hcl (MECLIZINE HCL) 25 Mg Tab 1 TAB PO TID Y for dizzy for 10 Days, #30 TAB Prov: Isaac Medina, 07/14/16 Referrals Alessandro Hamilton M.D. (PCP) Patient Instructions ED Vertigo Unspecified, My [facility] Additional Instructions Please follow up with your primary care doctor with in the next 24 hours. Any worsening of your symptoms, please return to the ED immediately. This includes recurrence of the dizziness, weakness or numbness in arms or legs, confusion, inability to walk, or any other concerning signs or symptoms from your standpoint. Please take Antivert as needed if the dizziness recurs. Please do not drive while having the symptoms of feeling dizzy/spinning. Problem Qualifiers
== END 2016-07-14 20:31 | disposition home or self-care (01) ==
LOC: C.EDB 16:30 → C.EDC 20:31
DX: R42 Dizziness and giddiness (principal); J02.9 Acute pharyngitis, unspecified; C81.90 Hodgkin lymphoma, unspecified, unspecified site; Z83.3 Family history of diabetes mellitus; Z82.49 Family history of ischemic heart disease and other diseases of the circulatory system; Z88.2 Allergy status to sulfonamides

== ENCOUNTER 2016-08-31 23:36 | Emergency (ER) | payer BC ==
[~2016-08-31] VITALS: Ht 162.6 cm; Wt 87.7 kg
[~2016-08-31 23:36] MED LIST changes: +ACET-1311 PO; +AMOX875T PO; +MECL1TAB42 PO
[2016-09-01] MEDS ORDERED: MAGIC SWIZZLE PO SCH
[2016-09-01 00:15] VITALS: TEMP 36.9; Ht 162.6 cm; Wt 87.7 kg
--- NOTE | 2016-09-01 00:38 | EMERGENCY ROOM VISIT NOTE ---
History Report prepared by Emy: Alisha Daniels Under the Supervision of: Dr. Kwesi Simon M.D. First contact with patient: 00:26 Chief Complaint: SORETHROAT Stated Complaint: I HAVE A SEVERE SORETHROAT,MAY BE CHEMO RELATED History of Present Illness The patient is a 41 year old female who presents to the Emergency Room with complaints of a worsening sore throat that started this morning. The patient suffers from Hodgkin's Lymphoma. She called her oncologist who recommended the patient come in to the ED if this sore throat persists, as she is at greater risk for developing an infection. Patient's last chemotherapy treatment was last week. She denies recent sick contacts. The patient does note, however, that she went on a field trip with first graders 3 days ago. She denies abdominal pain, nausea, vomiting, cough, fevers, or any additional associated symptoms. Patient has a history of a tonsillectomy. Source of History: patient Onset: This morning Position: throat Timing: worsening Modifying Factors (Relieving): other (None) Associated Symptoms: No abdominal pain, No cough, No fevers, No nausea, No vomiting Review of Systems See HPI for pertinent positives & negatives. A total of 10 systems reviewed and were otherwise negative. Past Medical & Surgical Medical Problems: (1) Hodgkin's lymphoma Surgical Problems: (1) Hx of tonsillectomy Old medical records were reviewed. Nurse's notes were reviewed and I agree with. Family History Diabetes mellitus Heart disease Social History Smoking Status: Never Smoker Alcohol Use: none Marital Status: Housing Status: lives with family Occupation Status: employed Current/Historical Medications Scheduled PRN Ondansetron Hcl (Zofran), 8 MG PO UD PRN for Nausea Prochlorperazine Maleate (Compazine), 10 MG PO UD PRN for Nausea Allergies Coded Allergies: Sulfa Drugs (Unverified Allergy, Unknown, RASH, 09/01/16) Physical Exam Vital Signs Date Time Temp Pulse Resp B/P Pulse Ox O2 Delivery O2 Flow Rate FiO2 09/01/16 02:32 71 16 121/68 99 Room Air 09/01/16 00:15 Room Air 09/01/16 00:15 36.9 94 20 132/79 99 Room Air Physical Exam General: Non ill appearing middle aged female, in no acute distress. HEENT: Normal cephalic atraumatic. Pupils are equal round and reactive to light. Extraocular movements are intact. Oropharynx is pink with moist mucous membranes. No thrush or lesions seen. No swelling of the mouth lips or tongue. Neck: Supple with a midline trachea. No meningeal signs or stiffness, no JVD or bruits. No Stridor. Chest: Clear to auscultation bilaterally. No wheezes or rhonchi. No increased work of breathing. Heart: regular rate and rhythm. Abdomen: Soft nontender, nondistended without rebound guarding or rigidity. Extremities: No cyanosis clubbing or edema. No calf tenderness or assymetry Spine/Back. Non tender to palpation. No CVA tenderness Skin: Good turgor without rashes. Neurologic exam: Cranial nerves two through 12 are intact. Motor and sensation are intact and symmetrical throughout. Medical Decision & Procedures Laboratory Results 09/01/16 01:00 Red Blood Count 4.05, Mean Corpuscular Volume 81.2, Mean Corpuscular Hemoglobin 26.7, Mean Corpuscular Hemoglobin Concent 32.8, Mean Platelet Volume 9.3, Neutrophils (%) (Auto) 53.1, Lymphocytes (%) (Auto) 37.3, Monocytes (%) (Auto) 6.7, Eosinophils (%) (Auto) 2.1, Basophils (%) (Auto) 0.5, Neutrophils # (Auto) 1.99, Lymphocytes # (Auto) 1.40, Monocytes # (Auto) 0.25, Eosinophils # (Auto) 0.08, Basophils # (Auto) 0.02 09/01/16 01:00 Test 09/01/16 01:00 White Blood Count 3.75 K/uL (4.8-10.8) Red Blood Count 4.05 M/uL (4.2-5.4) Hemoglobin 10.8 g/dL (12.0-16.0) Hematocrit 32.9 % (37-47) Mean Corpuscular Volume 81.2 fL (80-100) Mean Corpuscular Hemoglobin 26.7 pg (25-34) Mean Corpuscular Hemoglobin Concent 32.8 g/dl (32-36) Platelet Count 359 K/uL (130-400) Mean Platelet Volume 9.3 fL (7.4-10.4) Neutrophils (%) (Auto) 53.1 % Lymphocytes (%) (Auto) 37.3 % Monocytes (%) (Auto) 6.7 % Eosinophils (%) (Auto) 2.1 % Basophils (%) (Auto) 0.5 % Neutrophils # (Auto) 1.99 K/uL (1.4-6.5) Lymphocytes # (Auto) 1.40 K/uL (1.2-3.4) Monocytes # (Auto) 0.25 K/uL (0.11-0.59) Eosinophils # (Auto) 0.08 K/uL (0-0.5) Basophils # (Auto) 0.02 K/uL (0-0.2) RDW Standard Deviation 50.7 fL (36.4-46.3) RDW Coefficient of Variation 17.1 % (11.5-14.5) Immature Granulocyte % (Auto) 0.3 % Immature Granulocyte # (Auto) 0.01 K/uL (0.00-0.02) Anion Gap 8.0 mmol/L (3-11) Est Creatinine Clear Calc Drug Dose 126.5 ml/min Estimated GFR () 130.3 Estimated GFR (Non- 112.4 BUN/Creatinine Ratio 25.3 (10-20) Calcium Level 9.1 mg/dl (8.5-10.1) Laboratory studies as stated above per my review. ED Course 0029: Past medical records reviewed. The patient was evaluated in room B4, and a complete history and physical examination were performed. 0215: I discussed the patient's case with Dr. Rob (Oncology). She recommended I have the patient use magic swizzle mouthwash or gargle with half teaspoon baking soda/ half teaspoon water. 0232: Upon reevaluation, the patient is resting more comfortably. I discussed the results and treatment plan with the patient. She verbalized agreement of the treatment plan. The patient was discharged home with instructions from Dr. Rob. Medical Decision Differentials include, but are not limited to; Strep pharyngitis, thrush, infection, cancer complication. This patient comes in as described above she does have a sore throat. She has a history of Hodgkin's lymphoma and is currently receiving chemotherapy. IV access was established blood work was obtained she is not neutropenic. She's had no acute electrolyte or metabolic abnormalities. Her strep was negative. Her oropharynx exam was unremarkable. She has no lesions or thrush or abnormality seen. She did take a field trip with her children a couple days ago and may been exposed to URI/pharyngitis type illness. She was given Magic swizzle that she could go home with that she can take 5 mL's every 4-6 hours as needed. I did discuss case with Dr. Rob, who is the on-call oncologist she agrees. I did do blood cultures as well although the patient is is not febrile and is not neutropenic at this point. She will be discharged home. She will return if: Worsening of symptoms, fever or chills, shortness of breath, any new problems or concerns. She is happy with plan and discharged to home. Consults Time Called: 209 Consulting Physician: Dr. Rob (Oncology) Returned Call: 214 I discussed the patient's case with Dr. Rob (Oncology). She recommended I have the patient use magic swizzle mouthwash or gargle with half teaspoon baking soda / half teaspoon water. Impression Primary Impression: Sore throat Additional Impression: Hodgkin's lymphoma Scribe Attestation The scribe's documentation has been prepared under my direction and personally reviewed by me in its entirety. I confirm that the note above accurately reflects all work, treatment, procedures, and medical decision making performed by me. Departure Information Dispostion Home / Self-Care Referrals Alessandro Hamilton M.D. (PCP) Forms HOME CARE DOCUMENTATION FORM, IMPORTANT VISIT INFORMATION Patient Instructions My [facility] Additional Instructions Rest. Drink plenty of fluids. Use Magic swizzle 5 mL every 6 hours if needed Return if: Fever or chills, increasing pain, worsening symptoms, not tolerating fluids, any new problems or concerns Follow-up with your doctor on Saturday for recheck Problem Qualifiers
[2016-09-01 01:33] LABS: BASO % 0.5 %; BASO ABS # 0.02 K/uL (0-0.2); COMPLETE YES; EOS % 2.1 %; HEMATOCRIT 32.9 % (37-47); IG% 0.3 %; LYMPH % 37.3 %; MEAN CELL VOLUME 81.2 fL (80-100); MEAN CORPUSCULAR HEMOGLOBIN 26.7 pg (25-34); MEAN CORPUSCULAR HGB CONC 32.8 g/dl (32-36); MEAN PLATELET VOLUME 9.3 fL (7.4-10.4); MONO % 6.7 %; NEUT % 53.1 %; PLATELET COUNT 359 K/uL (130-400); RED BLOOD COUNT 4.05 M/uL (4.2-5.4); WHITE BLOOD COUNT 3.75 K/uL (4.8-10.8)
[2016-09-01 02:01] LABS: BUN/CREATININE RATIO 25.3 (10-20); CALCIUM 9.1 mg/dl (8.5-10.1); CREATININE 0.64 mg/dl (0.60-1.20); POTASSIUM 3.7 mmol/L (3.5-5.1)
[2016-09-01] MEDS ORDERED: MAGIC SWIZZLE PO STA (02:27)
[2016-09-01 02:32] VITALS: BP 121/68; PULSE 71; O2SAT 99
== END 2016-09-01 02:59 | disposition home or self-care (01) ==
LOC: C.EDB 23:37
DX: J02.9 Acute pharyngitis, unspecified (principal); Z83.3 Family history of diabetes mellitus; Z82.49 Family history of ischemic heart disease and other diseases of the circulatory system; C81.90 Hodgkin lymphoma, unspecified, unspecified site

== ENCOUNTER 2016-09-22 16:29 | Emergency (ER) | payer BC ==
[~2016-09-22] VITALS: Ht 162.6 cm; Wt 89.3 kg
[~2016-09-22 16:29] MED LIST changes: -ACET-1311 PO; -AMOX875T PO; -MECL1TAB42 PO
[2016-09-22 16:43] VITALS: TEMP 36.9; O2SAT 99; Ht 162.6 cm; Wt 89.3 kg
[2016-09-22] MEDS ORDERED: SODIUM CHLORIDE 0.9% 1000ML 1,000 ML IV STA (16:46)
--- NOTE | 2016-09-22 17:04 | DIAGNOSTIC IMAGING REPORT ---
SINGLE VIEW CHEST CLINICAL HISTORY: Atrial fibrillation. Weakness. Left arm numbness. Generalized abdominal pain. FINDINGS: An AP, portable, upright chest radiograph is obtained. No prior studies are available for comparison at the time of dictation. The examination is mildly degraded by portable technique and patient rotation. A left subclavian central venous infusion port is in place. The tip of the catheter projects over the cavoatrial junction. The heart is top normal for projection. The pulmonary vasculature is noncongested. The lungs and pleural spaces are clear. No pneumothorax is seen. The bony thorax is grossly intact. IMPRESSION: No active disease in the chest. Electronically signed by: Cal Ge M.D. 09/22/2016 5:03 PM Dictated Date/Time: 09/22/2016 5:02 PM
[2016-09-22 17:37] LABS: INR 0.9 (0.9-1.1); PROTHROMBIN TIME (PATIENT) 9.4 SECONDS (9.0-12.0)
[2016-09-22 17:40] LABS: PREG INTERNAL NEGATIVE QC NEG CLEAR BACKGROUND; PREG INTERNAL POSITIVE QC POS CONTROL LINE
[2016-09-22 17:42] LABS: ALT/SGPT 36 U/L (12-78); AST/SGOT 14 U/L (15-37); BLOOD UREA NITROGEN 11 mg/dl (7-18); BUN/CREATININE RATIO 15.1 (10-20); CARBON DIOXIDE 27 mmol/L (21-32); CHLORIDE 105 mmol/L (98-107); CREATININE 0.71 mg/dl (0.60-1.20); GLUCOSE 95 mg/dl (70-99); MAGNESIUM 2.2 mg/dl (1.8-2.4); POTASSIUM 3.8 mmol/L (3.5-5.1); SODIUM 141 mmol/L (136-145)
[2016-09-22 17:44] LABS: MEAN CELL VOLUME 79.6 fL (80-100); MEAN CORPUSCULAR HEMOGLOBIN 26.2 pg (25-34); MEAN CORPUSCULAR HGB CONC 32.9 g/dl (32-36); MEAN PLATELET VOLUME 9.6 fL (7.4-10.4); PLATELET COUNT 246 K/uL (130-400); RED BLOOD COUNT 4.27 M/uL (4.2-5.4); WHITE BLOOD COUNT 2.23 K/uL (4.8-10.8)
[2016-09-22 17:45] LABS: BASO % 0.4 %; BASO ABS # 0.01 K/uL (0-0.2); COMPLETE YES; EOS % 5.4 %; LYMPH % 46.2 %; LYMPH ABS # 1.03 K/uL (1.2-3.4); MONO % 9.9 %; NEUT % 38.1 %
[2016-09-22 17:51] LABS: ALKALINE PHOSPHATASE 72 U/L (45-117); CKMB/CK RATIO 1.2 (0-3.0); THYROID STIMULATING HORMONE 0.586 uIu/ml (0.300-4.500)
--- NOTE | 2016-09-22 18:58 | EMERGENCY ROOM VISIT NOTE ---
History Report prepared by Emy: Pretty Khan Under the Supervision of: Dr. Farhad Holley D.O. First contact with patient: 16:35 Chief Complaint: CARDIAC ASSESSMENT Stated Complaint: AFIB, L ARM NUMB, WEAKNESS History of Present Illness The patient is a 41 year old female who presents to the Emergency Room with complaints of a sudden onset of a rapid heart rate occurring just prior to arrival. The patient states that she was doing laundry when she felt her heart start to race. She states that when this occurred she became very dizzy. She notes that one her neighbors is a nurse and came over to help. She states that her neighbor couldn't even count the rate because it was so rapid. She states that she was told by her neighbor to push like she was pooping and she drank water. She states that these two things helped it some. She reports that nothing made it worse. She states that in the middle of the episode she felt short of breath. The patient states that the episode lasted 15 minutes. The patient reports that she has been trying to take it easy. She states that she currently feels dizzy and weak. She reports vomiting yesterday. The patient notes that she has Hodgkin and her last treatment was three days ago. The patient notes that she is experiencing muscle cramps in her legs. She denies swelling in legs and diarrhea. She notes that she has had a fast heart rate in the past in 2011 when she was . The patient reports that her last normal menstrual cycle was July 13, 2016. Source of History: patient Onset: prior to arrival Position: chest Quality: other (global) Timing: other (sudden) Modifying Factors (Relieving): drinking, other (push like she was pooping) Associated Symptoms: + SOB, + vomiting, + weakness, No diarrhea Note: The patient complains of dizziness an muscle cramps in her legs. The patient denies any leg swelling. Review of Systems See HPI for pertinent positives & negatives. A total of 10 systems reviewed and were otherwise negative. Past Medical & Surgical Medical Problems: (1) Hodgkin's lymphoma Surgical Problems: (1) Hx of tonsillectomy Family History Diabetes mellitus Heart disease Social History Smoking Status: Never Smoker Alcohol Use: none Marital Status: Housing Status: lives with family Occupation Status: employed Current/Historical Medications Scheduled PRN Ondansetron Hcl (Zofran), 8 MG PO UD PRN for Nausea Prochlorperazine Maleate (Compazine), 10 MG PO UD PRN for Nausea Allergies Coded Allergies: Sulfa Drugs (Unverified Allergy, Unknown, RASH, 09/22/16) Physical Exam Vital Signs Date Time Temp Pulse Resp B/P Pulse Ox O2 Delivery O2 Flow Rate FiO2 09/22/16 20:43 85 16 127/87 95 09/22/16 18:50 80 16 123/69 97 09/22/16 18:29 90 15 98 09/22/16 18:14 97 21 98 09/22/16 17:59 91 17 97 09/22/16 17:44 91 15 97 09/22/16 17:29 92 22 96 09/22/16 17:14 95 16 97 09/22/16 16:44 93 22 97 09/22/16 16:43 97 09/22/16 16:43 Room Air 09/22/16 16:43 99 Room Air 09/22/16 16:43 36.9 95 16 124/84 98 Room Air 09/22/16 16:42 124/84 Physical Exam GENERAL: Patient is awake, alert, and in no acute distress. Patient is resting comfortably and showing no signs of anxiety EYES: The conjunctivae are clear. The pupils are round and reactive. EARS, NOSE, MOUTH AND THROAT: The nose is without any evidence of any deformity. Mucous membranes are moist tongue is midline NECK: The neck is nontender and supple. RESPIRATORY: Normal respiratory effort is noted there is no evidence of wheezing rhonchi or rales CARDIOVASCULAR: Regular rate and rhythm noted there no murmurs rubs or gallops normal S1 normal S2 GASTROINTESTINAL: The abdomen is soft. Bowel sounds are present in all quadrants. Abdomen is nontender MUSCULOSKELETAL/EXTREMITIES: There is no evidence of gross deformity full range of motion is noted in the hips and shoulders SKIN: There is no obvious evidence of any rash. There are no petechiae, pallor or cyanosis noted. NEUROLOGIC: Patient is awake alert and oriented x3 strength is symmetric patellar reflexes are 2+ bilaterally Medical Decision & Procedures ER Provider Diagnostic Interpretation: Radiology results as stated below per my review and radiologist interpretation: SINGLE VIEW CHEST CLINICAL HISTORY: Atrial fibrillation. Weakness. Left arm numbness. Generalized abdominal pain. FINDINGS: An AP, portable, upright chest radiograph is obtained. No prior studies are available for comparison at the time of dictation. The examination is mildly degraded by portable technique and patient rotation. A left subclavian central venous infusion port is in place. The tip of the catheter projects over the cavoatrial junction. The heart is top normal for projection. The pulmonary vasculature is noncongested. The lungs and pleural spaces are clear. No pneumothorax is seen. The bony thorax is grossly intact. IMPRESSION: No active disease in the chest. Electronically signed by: Cal Ge M.D. 09/22/2016 5:03 PM Dictated Date/Time: 09/22/2016 5:02 PM Laboratory Results 09/22/16 17:07 Red Blood Count 4.27, Mean Corpuscular Volume 79.6, Mean Corpuscular Hemoglobin 26.2, Mean Corpuscular Hemoglobin Concent 32.9, Mean Platelet Volume 9.6, Neutrophils (%) (Auto) 38.1, Lymphocytes (%) (Auto) 46.2, Monocytes (%) (Auto) 9.9, Eosinophils (%) (Auto) 5.4, Basophils (%) (Auto) 0.4, Neutrophils # (Auto) 0.85, Lymphocytes # (Auto) 1.03, Monocytes # (Auto) 0.22, Eosinophils # (Auto) 0.12, Basophils # (Auto) 0.01 09/22/16 17:07 Test 09/22/16 17:07 09/22/16 19:45 White Blood Count 2.23 K/uL (4.8-10.8) Red Blood Count 4.27 M/uL (4.2-5.4) Hemoglobin 11.2 g/dL (12.0-16.0) Hematocrit 34.0 % (37-47) Mean Corpuscular Volume 79.6 fL (80-100) Mean Corpuscular Hemoglobin 26.2 pg (25-34) Mean Corpuscular Hemoglobin Concent 32.9 g/dl (32-36) Platelet Count 246 K/uL (130-400) Mean Platelet Volume 9.6 fL (7.4-10.4) Neutrophils (%) (Auto) 38.1 % Lymphocytes (%) (Auto) 46.2 % Monocytes (%) (Auto) 9.9 % Eosinophils (%) (Auto) 5.4 % Basophils (%) (Auto) 0.4 % Neutrophils # (Auto) 0.85 K/uL (1.4-6.5) Lymphocytes # (Auto) 1.03 K/uL (1.2-3.4) Monocytes # (Auto) 0.22 K/uL (0.11-0.59) Eosinophils # (Auto) 0.12 K/uL (0-0.5) Basophils # (Auto) 0.01 K/uL (0-0.2) RDW Standard Deviation 48.1 fL (36.4-46.3) RDW Coefficient of Variation 16.5 % (11.5-14.5) Immature Granulocyte % (Auto) 0.0 % Immature Granulocyte # (Auto) 0.00 K/uL (0.00-0.02) Prothrombin Time 9.4 SECONDS (9.0-12.0) Prothromb Time International Ratio 0.9 (0.9-1.1) Activated Partial Thromboplast Time 25.4 SECONDS (21.0-31.0) Partial Thromboplastin Ratio 1.0 Anion Gap 9.0 mmol/L (3-11) Est Creatinine Clear Calc Drug Dose 115.1 ml/min Estimated GFR () 124.4 Estimated GFR (Non- 107.3 BUN/Creatinine Ratio 15.1 (10-20) Calcium Level 9.0 mg/dl (8.5-10.1) Magnesium Level 2.2 mg/dl (1.8-2.4) Total Bilirubin 0.3 mg/dl (0.2-1) Direct Bilirubin < 0.1 mg/dl (0-0.2) Aspartate Amino Transf (AST/SGOT) 14 U/L (15-37) Alanine Aminotransferase (ALT/SGPT) 36 U/L (12-78) Alkaline Phosphatase 72 U/L (45-117) Total Creatine Kinase 49 U/L (26-192) Creatine Kinase MB 0.6 ng/ml (0.5-3.6) Creatine Kinase MB Ratio 1.2 (0-3.0) Troponin I < 0.015 ng/ml (0-0.045) Total Protein 7.1 gm/dl (6.4-8.2) Albumin 3.9 gm/dl (3.4-5.0) Lipase 128 U/L (73-393) Thyroid Stimulating Hormone (TSH) 0.586 uIu/ml (0.300-4.500) Free Thyroxine 0.87 ng/dl (0.80-1.60) Human Chorionic Gonadotropin, Qual NEG (NEG) Urine Color YELLOW Urine Appearance CLEAR (CLEAR) Urine pH 7.0 (4.5-7.5) Urine Specific Nadeau 1.003 (1.000-1.030) Urine Protein NEG (NEG) Urine Glucose (UA) NEG (NEG) Urine Ketones NEG (NEG) Urine Occult Blood NEG (NEG) Urine Nitrite NEG (NEG) Urine Bilirubin NEG (NEG) Urine Urobilinogen NEG (NEG) Urine Leukocyte Esterase NEG (NEG) Laboratory results per my review. Medications Administered Medications (Trade) Dose Ordered Sig/Chris Route Start Time Stop Time Status Last Admin Dose Admin Sodium Chloride (Nss 1000ml) 1,000 ml @ 999 mls/hr Q1H1M STAT IV 09/22/16 16:46 09/22/16 17:46 DC 09/22/16 17:18 999 MLS/HR ECG Indication: palpitations Rate (beats per minute): 88 Rhythm: normal sinus Findings: other (no acute ST abnormalities, ectopic atrial beat noted) Comparison ECG Date: 07/14/2016 Change: no significant change ED Course 1639: The patient was evaluated in room B7. A complete history and physical examination were performed. 1646: Ordered NSS 1000 ml @ 999 mls/hr IV. 1847: I discussed the patient's case with Dr. Palomo. 2044: Upon reevaluation, the patient is resting comfortably. I discussed the results and treatment plan with her. The patient verbalized agreement of the treatment plan. She was discharged home. Medical Decision Differential diagnosis: Etiologies such as premature contractions, electrolyte abnormality, cardiac dysrhythmia, thyroid dysfunction, pulmonary embolism, infection, gastrointestinal, as well as others were entertained. Nursing notes reviewed. The patient is a 41-year-old female who presented to the emergency department for an evaluation of palpitations. The patient states that she became very dizzy and lightheaded and felt as though her pulse was racing. She has a neighbor who is a nurse who checked her pulse rate and stated it was very high that she could not count. The patient did not have any episodes of dysrhythmia while in the emergency department. Her symptoms continued to improve with IV fluids. I discussed the patient's laboratory and radiographic studies with her. She did not have a fever. Her electrolytes were not abnormal to the point where it would explain this episode of palpitations. Likely this represents SVT. The patient states that her neighbor showed her how to do a Valsalva maneuver which seemed to resolve the symptoms. I discussed her case with the on-call [facility] [employer] web design intern. At this time he is recommending an echocardiogram and a Holter monitor and follow-up especially given the patient's history of chemotherapy recently. The patient was encouraged to rest and avoid any strenuous activity. She was also encouraged to continue all medications as prescribed. She was also encouraged to follow-up with the web design intern for further studies but return to the emergency department immediately if symptoms change worsen or the need arises. Consults Time Called: 1841 Consulting Physician: Dr. Palomo Returned Call: 1846 I discussed the patient's case with Dr. Palomo. The patient will be evaluated for further management. Impression Primary Impression: Palpitations Additional Impression: Dizziness Scribe Attestation The scribe's documentation has been prepared under my direction and personally reviewed by me in its entirety. I confirm that the note above accurately reflects all work, treatment, procedures, and medical decision making performed by me. Departure Information Dispostion Home / Self-Care Referrals Alessandro Hamilton M.D. (PCP) Forms IMPORTANT VISIT INFORMATION Patient Instructions My [facility] Additional Instructions Continue all medications as prescribed. Rest and avoid any strenuous activity. Follow-up with the web design intern as scheduled for further testing such as echocardiogram and Holter monitor to further evaluate the cause of her palpitations. Drink plenty clear liquids. Avoid caffeinated beverages. Return to the emergency department immediately if symptoms change worsen or the need arises. Problem Qualifiers
[2016-09-22 19:53] LABS: URINE APPEARANCE CLEAR (CLEAR); URINE BILIRUBIN NEG (NEG); URINE COLOR YELLOW; URINE NITRITE NEG (NEG); URINE SPECIFIC GRAVITY 1.003 (1.000-1.030); UROBILINOGEN NEG (NEG)
[2016-09-22 19:54] LABS: MANUAL MICROSCOPIC REQUIRED? NO; REVIEW REQ? NO
[2016-09-22 20:43] VITALS: BP 127/87; PULSE 85; O2SAT 95
== END 2016-09-22 20:45 | disposition home or self-care (01) ==
LOC: C.EDB 16:32
DX: R00.2 Palpitations (principal); R42 Dizziness and giddiness; Z85.71 Personal history of Hodgkin lymphoma; Z98.890 Other specified postprocedural states; Z88.2 Allergy status to sulfonamides; Z83.3 Family history of diabetes mellitus; Z82.49 Family history of ischemic heart disease and other diseases of the circulatory system

== ENCOUNTER → 2017-01-16 | Outpatient (CLI) | payer OTHER ==
--- NOTE | 2017-01-16 13:51 | DIAGNOSTIC IMAGING REPORT ---
ULTRASOUND GUIDED FINE NEEDLE ASPIRATION OF LEFT LOBE THYROID NODULE CLINICAL HISTORY: Left lobe thyroid nodule. COMPARISON STUDY: PET/CT January 02, 2017. PROCEDURE: The procedure, risks and benefits were discussed with the patient. The patient agreed to the procedure and informed written consent was obtained. The procedure was performed by Dr. Houston following a timeout. Skin of the left neck was prepped and draped in sterile fashion and local anesthesia was achieved with 1% lidocaine. The 1.9 cm left lobe thyroid nodule was targeted for biopsy. Under direct ultrasound guidance, 2 25-gauge fine needle aspirations of the left lobe nodule were obtained. The samples were deemed preliminarily adequate by pathology. The patient tolerated the procedure well and no immediate complications were evident. IMPRESSION: Ultrasound guided fine needle aspiration of 1.9 cm left lobe thyroid nodule. Electronically signed by: Chencho Houston M.D. 01/16/2017 1:50 PM Dictated Date/Time: 01/16/2017 1:49 PM
== END | disposition home or self-care (01) ==
LOC: C.ULTR 12:29
PROVIDERS: ATTEND Physician Assistant
DX: E04.1 Nontoxic single thyroid nodule (principal)

== ENCOUNTER 2017-12-13 17:39 | Emergency (ER) | payer OTHER ==
[~2017-12-13] VITALS: Ht 162.6 cm; Wt 88.6 kg
[~2017-12-13 17:39] MED LIST changes: +ONDA-170 PO; -ONDA8TAB6 PO; +PROC10TA PO; -PROC1TAB5 PO
[2017-12-13 17:52] VITALS: TEMP 37.4; Ht 162.6 cm; Wt 88.6 kg
[2017-12-13] MEDS ORDERED: DiphenhydrAMINE HCL 50 MG/ML VIAL IV STA (18:29)
[2017-12-13] MEDS ORDERED: SODIUM CHLORIDE 0.9% 500ML 500 ML IV STA (18:29)
[2017-12-13 18:53] LABS: BASO % 0.4 %; BASO ABS # 0.03 K/uL (0-0.2); EOS % 0.7 %; EOS ABS # 0.05 K/uL (0-0.5); HEMOGLOBIN 12.4 g/dL (12.0-16.0); IG# 0.02 K/uL (0.00-0.02); LYMPH % 28.9 %; LYMPH ABS # 2.06 K/uL (1.2-3.4); MEAN CELL VOLUME 85.5 fL (80-100); MEAN CORPUSCULAR HEMOGLOBIN 28.6 pg (25-34); MEAN CORPUSCULAR HGB CONC 33.5 g/dl (32-36); MEAN PLATELET VOLUME 9.9 fL (7.4-10.4); MONO % 6.9 %; MONO ABS # 0.49 K/uL (0.11-0.59); NEUT % 62.8 %; NEUT ABS # 4.49 K/uL (1.4-6.5); PLATELET COUNT 264 K/uL (130-400); RED CELL DISTRIBUTION WIDTH CV 14.3 % (11.5-14.5); RED CELL DISTRIBUTION WIDTH SD 45.1 fL (36.4-46.3); WHITE BLOOD COUNT 7.14 K/uL (4.8-10.8)
--- NOTE | 2017-12-13 19:11 | EMERGENCY ROOM VISIT NOTE ---
History First contact with patient: 18:08 (Mariama Hurt PA-C) First contact with patient: 18:08 (Ananda Reed M.D.) Chief Complaint: OTHER COMPLAINT Stated Complaint: VACCINATION SIDE EFECTS, PARALYSIS,NUMBNESS History of Present Illness The patient is a 42 year old female who presents to the Emergency Room with complaints of neurologic symptoms and pain after receiving immunizations this past Saturday. The patient received her hepatitis A, hepatitis B and meningitis vaccine for school. She reports that the vaccines in her right arm were significantly painful. She has a difficult time moving the arm the next day. She then developed a numbness and tingling sensation in addition to pain that moved up into her neck and into her head. She is complaining of numbness and tingling down her left arm. She also has some numbness and tingling into the lateral aspect of her left leg. She denies any fever or chills. No difficulty breathing or swallowing. For the neck pain, she has tried Tylenol with minimal relief. The patient contacted her primary care physician who directed her here for further evaluation. (Mariama Hurt PA-C) Review of Systems 10 system review performed and negative unless noted in HPI or below (Mariama Hurt PA-C) Past Medical/Surgical History Medical Problems: (1) Hodgkin's lymphoma Surgical Problems: (1) Hx of tonsillectomy (Ananda Reed M.D.) Family History Diabetes mellitus Heart disease (Mariama Hurt PA-C) Diabetes mellitus Heart disease (Ananda Reed M.D.) Social History Smoking Status: Never Smoker Alcohol Use: none Marital Status: Housing Status: lives with family Occupation Status: employed (Mariama Hurt PA-C) Current/Historical Medications Scheduled Cyclobenzaprine Hcl (Flexeril), 10 MG PO TID Scheduled PRN Ondansetron Hcl (Zofran), 8 MG PO UD PRN for Nausea Prochlorperazine Maleate (Compazine), 10 MG PO UD PRN for Nausea Physical Exam Vital Signs Date Time Temp Pulse Resp B/P (MAP) Pulse Ox O2 Delivery O2 Flow Rate FiO2 12/13/17 21:25 81 18 117/71 99 Room Air 12/13/17 20:51 75 18 91/56 100 Room Air 12/13/17 19:09 81 20 124/82 99 Room Air 12/13/17 17:52 37.4 83 18 136/93 98 Room Air (Ananda Reed M.D.) Physical Exam VITALS: Vitals are noted on the nurse's note and reviewed by myself. Vital signs stable. GENERAL: 42-year-old female, in no acute distress, nondiaphoretic, well- developed well-nourished. SKIN: The skin was without rashes, erythema, edema, or bruising. HEAD: Normocephalic atraumatic. EYES: Pupils equal round and reactive to light and accommodation. Conjunctivae without injection, sclerae without icterus. Extraocular movements intact. MOUTH: Mucous membranes slightly dry NECK: Supple without nuchal rigidity. No lymphadenopathy. Cervical spine is nontender. No JVD. HEART: Regular rate and rhythm without murmurs gallops or rubs. LUNGS: Clear to auscultation bilaterally without wheezes, rales or rhonchi. No accessory muscle use. ABDOMEN: Positive bowel sounds x 4. MUSCULOSKELETAL: No muscle atrophy, erythema, or edema noted. Full range of motion in all extremities. No tenderness to palpation. Normal gait. Strength 5/5 throughout. NEURO: Patient was alert and oriented to person place and time. Sensation to the lateral calf was subjectively slightly more dull when compared to the right. Cranial nerves grossly intact. Knee reflexes appropriate and equal bilaterally. (Mariama Hurt, PA-C) Medical Decision & Procedures ER Provider Diagnostic Interpretation: MRI cervical spine without contrast IMPRESSION: 1. Mild multilevel degenerative disc disease and facet arthrosis with small central disc protrusion at C5-C6. Patent central canal. Normal cervical cord signal and caliber. 2. Mild to moderate multilevel left-sided neural foraminal narrowing, as detailed above. Electronically signed by: Chencho Houston M.D. 12/13/2017 8:50 PM Dictated Date/Time: 12/13/2017 8:44 PM The status of this report is Signed. Draft = Not yet reviewed or approved by Radiologist. Signed = Reviewed and approved by Radiologist. <AttendingPhy></AttendingPhy> <FamilyPhy>No Doctor, Assigned</FamilyPhy> < PrimaryPhy>No Doctor, Assigned</PrimaryPhy> <UnitNumber>[id number]</UnitNumber> <VisitNumber>[id number]</VisitNumber> <PatientName>DIONNE ROBERTS</ PatientName> <DateOfBirth>1975</DateOfBirth> <Location>[facility]</Location> < ServiceDate>12/13/17</ServiceDate> <MNE>ESINDI</MNE> <OrderingPhy>Mariama Hurt PA-C</OrderingPhy> <OrderingPhyMNE>f rep ord dr grullon</OrderingPhyMNE> < DictatingPhyMNE>f rep dict dr grullon</DictatingPhyMNE> <CCListMNE>f rep ct mne</ CCListMNE> <AdmittingPhyMNE>f pt admit dr grullon</AdmittingPhyMNE> <AttendingPhyMNE (Mariama Hurt PA-C) Laboratory Results 12/13/17 18:40 Red Blood Count 4.33, Mean Corpuscular Volume 85.5, Mean Corpuscular Hemoglobin 28.6, Mean Corpuscular Hemoglobin Concent 33.5, Mean Platelet Volume 9.9, Neutrophils (%) (Auto) 62.8, Lymphocytes (%) (Auto) 28.9, Monocytes (%) (Auto) 6.9, Eosinophils (%) (Auto) 0.7, Basophils (%) (Auto) 0.4, Neutrophils # (Auto) 4.49, Lymphocytes # (Auto) 2.06, Monocytes # (Auto) 0.49, Eosinophils # (Auto) 0.05, Basophils # (Auto) 0.03 12/13/17 18:40 Test 12/13/17 18:40 12/13/17 21:00 White Blood Count 7.14 K/uL (4.8-10.8) Red Blood Count 4.33 M/uL (4.2-5.4) Hemoglobin 12.4 g/dL (12.0-16.0) Hematocrit 37.0 % (37-47) Mean Corpuscular Volume 85.5 fL (80-100) Mean Corpuscular Hemoglobin 28.6 pg (25-34) Mean Corpuscular Hemoglobin Concent 33.5 g/dl (32-36) Platelet Count 264 K/uL (130-400) Mean Platelet Volume 9.9 fL (7.4-10.4) Neutrophils (%) (Auto) 62.8 % Lymphocytes (%) (Auto) 28.9 % Monocytes (%) (Auto) 6.9 % Eosinophils (%) (Auto) 0.7 % Basophils (%) (Auto) 0.4 % Neutrophils # (Auto) 4.49 K/uL (1.4-6.5) Lymphocytes # (Auto) 2.06 K/uL (1.2-3.4) Monocytes # (Auto) 0.49 K/uL (0.11-0.59) Eosinophils # (Auto) 0.05 K/uL (0-0.5) Basophils # (Auto) 0.03 K/uL (0-0.2) RDW Standard Deviation 45.1 fL (36.4-46.3) RDW Coefficient of Variation 14.3 % (11.5-14.5) Immature Granulocyte % (Auto) 0.3 % Immature Granulocyte # (Auto) 0.02 K/uL (0.00-0.02) Erythrocyte Sedimentation Rate 19 mm/hr (0-21) Anion Gap 8.0 mmol/L (3-11) Est Creatinine Clear Calc Drug Dose 130.0 ml/min Estimated GFR () 130.7 Estimated GFR (Non- 112.8 BUN/Creatinine Ratio 11.7 (10-20) Calcium Level 8.6 mg/dl (8.5-10.1) Total Bilirubin 0.2 mg/dl (0.2-1) Aspartate Amino Transf (AST/SGOT) 15 U/L (15-37) Alanine Aminotransferase (ALT/SGPT) 19 U/L (12-78) Alkaline Phosphatase 62 U/L (45-117) Total Protein 7.5 gm/dl (6.4-8.2) Albumin 3.8 gm/dl (3.4-5.0) Globulin 3.7 gm/dl (2.5-4.0) Albumin/Globulin Ratio 1.0 (0.9-2) Vitamin B12 Level 401 pg/mL (211-911) (Ananda Reed M.D.) Medications Administered Medications (Trade) Dose Ordered Sig/Chris Route Start Time Stop Time Status Last Admin Dose Admin Sodium Chloride 500 ml @ 999 mls/hr Q31M STAT IV 12/13/17 18:29 12/13/17 18:59 DC 12/13/17 18:43 999 MLS/HR Diphenhydramine HCl (Benadryl Inj) 25 mg NOW STAT IV 12/13/17 18:29 12/13/17 18:31 DC 12/13/17 18:43 25 MG Cyclobenzaprine HCl (FLEXERIL 10MG Home Pack) 1 homepack UD ONCE PO 12/13/17 21:15 12/13/17 21:16 DC 12/13/17 21:24 1 HOMEPACK (Ananda Reed M.D.) ED Course Patient was seen and examined Vital signs including blood pressure were reviewed medications list was verified with patient Labs were obtained, and a saline lock was established The patient was given Benadryl 25 mg IV. She was hydrated with 500 cc of normal saline. The case was also discussed with my supervising physician who is in agreement with my plan The patient was reassessed and resting comfortably in bed. We discussed her results. She voiced understanding. I reviewed discharge instructions the patient. They voiced understanding and had no further questions. (Mariama Hurt, EVERARDO) Medical Decision Differential diagnosis: Paresthesias, vitamin deficiency, electrolyte abnormality, musculoskeletal pain, demyelinating disease, polymyositis, Guillan Curry, among others were entertained This patient is a 42-year-old female that presents to the emergency department complaining of numbness and tingling particularly in her left arm and left leg, neck pain and a headache after receiving vaccines earlier this week. On exam, she did not have any nuchal rigidity. She did not have any signs of an allergic reaction. There was no fever or leukocytosis to suggest infection. Her sed rate is normal. She did not have any weakness to suggest Guillan Curry . Her reflexes were appropriate. The patient does have mild DJD and disc protrusion at C5-C6. It is possible that this is contributing to her symptoms. As far as her paresthesias in the left leg, the etiology of this is unclear. A vitamin B12 level was sent. I believe the patient is stable to be discharged home. She will follow-up closely with her primary care physician on Saturday. She agreed to return to the ED with any concerning symptoms. This chart was completed in part utilizing [employer] Speech Voice Recognition software. Attempts were made to minimize the grammatical errors, random word insertions, pronoun errors and incomplete sentences. Any formal questions or concerns about the content, text or information contained within the body of this dictation should be directly addressed to the provider for clarification. (Mariama Hurt PA-C) Discussed case with PA. Atypical timing post vaccination and presentation for GBS. Labs and imaging reviewed. Feel that watchful waiting at this time rather than LP with return precautions is prudent. PCP follow up. (Ananda Reed M.D.) Impression Primary Impression: Paresthesias Departure Information Dispostion Home / Self-Care Condition GOOD Prescriptions Cyclobenzaprine Hcl (FLEXERIL) 10 Mg Tab 10 MG PO TID for Muscle Spasms, #20 TAB Prov: Mariama Hurt PA-C 12/13/17 Referrals No Doctor, Assigned (PCP) Patient Instructions My [facility] Additional Instructions You have been evaluated in the emergency department for numbness, tingling and neck pain. An MRI shows a mild disc protrusion at C5-C6. It is possible that this is contributing to your upper extremity symptoms. Please take ibuprofen 600 mg every 6 hours as needed for pain Flexeril every 8 hours as needed for muscle spasm/pain. Please also do not drink alcohol or drive while taking this medication. You may try a heating pad to the area for 20 minute intervals. Please follow-up with your primary care physician on Saturday Please do not hesitate to return to the emergency department with any new, worsening or concerning symptoms; especially, weakness, fever or difficulty breathing It was a pleasure participating in your care today
[2017-12-13 19:15] LABS: ALBUMIN 3.8 gm/dl (3.4-5.0); CALCIUM 8.6 mg/dl (8.5-10.1); CREATININE 0.62 mg/dl (0.60-1.20); POTASSIUM 3.7 mmol/L (3.5-5.1); TOTAL PROTEIN 7.5 gm/dl (6.4-8.2)
--- NOTE | 2017-12-13 20:51 | DIAGNOSTIC IMAGING REPORT ---
MRI OF THE CERVICAL SPINE WITHOUT CONTRAST CLINICAL HISTORY: Neck pain, left arm paresthesias. History of lymphoma. COMPARISON: PET/CT January 02, 2017 TECHNIQUE: Utilizing a 1.5 Megan magnet and dedicated coil, multiplanar, multiecho imaging of the cervical spine was performed without IV contrast. FINDINGS: Alignment of the cervical spine is anatomic. Vertebral body heights are maintained. There is no suspicious marrow replacement. Cervical cord signal and caliber are normal. There is no intracanalicular mass or fluid collection. Paravertebral soft tissues are unremarkable. C2-C3: The central canal and neural foramen are patent. C3-C4: The central canal and right neural foramen are patent. There is mild narrowing of the left neural foramen. C4-C5: The central canal and right neural foramen are patent. There is mild to moderate left neural foraminal narrowing due to uncovertebral hypertrophy and facet arthrosis. C5-C6: Mild disc space narrowing is noted with a small central disc protrusion. Central canal is patent. There is mild narrowing of the left neural foramen. C6-C7: The central canal and neural foramen are patent. C7-T1: Central canal and neural foramen are patent. IMPRESSION: 1. Mild multilevel degenerative disc disease and facet arthrosis with small central disc protrusion at C5-C6. Patent central canal. Normal cervical cord signal and caliber. 2. Mild to moderate multilevel left-sided neural foraminal narrowing, as detailed above. Electronically signed by: Chencho Houston M.D. 12/13/2017 8:50 PM Dictated Date/Time: 12/13/2017 8:44 PM
[2017-12-13] MEDS ORDERED: CYCL10TA6 PO (21:10)
[2017-12-13] MEDS ORDERED: FLEXERIL HOME PACK 10 MG VIAL PO ONE (21:15)
[2017-12-13 21:25] VITALS: BP 117/71; PULSE 81; O2SAT 99
== END 2017-12-13 21:25 | disposition home or self-care (01) ==
LOC: C.EDB 17:41 → C.EDC 21:25
DX: R20.2 Paresthesia of skin (principal); M54.2 Cervicalgia; R51 Headache; M19.90 Unspecified osteoarthritis, unspecified site; M50.222 Other cervical disc displacement at C5-C6 level